=== PATIENT | female | born 1970 | race Caucasian/White ===

== ENCOUNTER → 2023-11-10 13:06 | Outpatient (REF) | payer BC, SELFPAY | LOC: DHVS 13:06 | PROVIDERS: ATTENDING PHYSICIAN Surgery Vascular Surgery; FAMILY PHYSICIAN Family Medicine | DX: I77.71 Dissection of carotid artery (principal) | CPT/HCPCS: 93880 ==

== ENCOUNTER → 2024-11-15 13:04 | Outpatient (REF) | payer BC, SELFPAY | LOC: DHVS 13:04 | PROVIDERS: ATTENDING PHYSICIAN Physician Assistant; FAMILY PHYSICIAN Family Medicine | DX: I77.71 Dissection of carotid artery (principal) | CPT/HCPCS: 93880 ==